=== PATIENT | male | born 1960 | race American Indian/Alaskan Native ===

== ENCOUNTER → 2024-10-05 | Outpatient (CLI) | payer MEDICAID, SELFPAY ==
--- NOTE | 2024-10-05 12:41 | XR_ITS ---
Examination: Left elbow 3 views Technique: Elbow AP, oblique, lateral 3 views Exam date and time: October 03, 2024, 1307 hours INDICATIONS: Elbow pain beginning 2 months ago. FINDINGS: Mild elbow osteoarthritis. No fracture or dislocation IMPRESSION: Mild elbow osteoarthritis.
== END | disposition home or self-care (01) ==
PROVIDERS: PCP Physician Assistant; Referring Provider Internal Medicine; Visit Provider Internal Medicine
DX: M19.022 Primary osteoarthritis, left elbow (principal)
CPT/HCPCS: 73080